=== PATIENT | male | born 1950 | race Caucasian/White ===

== ENCOUNTER 2022-02-19 17:16 | Inpatient (IN) | payer MEDICARE, BC ==
[~2022-02-19] VITALS: Ht 170.2 cm; Wt 78.9 kg
[~2022-02-19 17:16] MED LIST: MEROPENEM 500 MG in IV NS 0.9% 50 ML IV SCH
--- NOTE | 2022-02-19 17:28 | NUR ---
[id number] FOR ALTERED MENTAL STATUS AND TACHYCARDIA. PT ATTACHED TO MONITOR. PT HAVE A FEVER OF 101.6 UPON ARRIVAL, PT HAS DIARRHEA. PT HAS G TUBE IN PLACE. HAS PRESSURE INJURIES ON SACRUM AND BILATERAL HEELS. PT HAS G TUBE. DR CORONADO AT BEDSIDE. JENNIFER MAYER ORDERS.
[2022-02-19] MEDS ORDERED: IV NS 0.9% 1,000 ML BAG IV ONE ×2 (17:30→19:00)
--- NOTE | 2022-02-19 17:40 | NUR ---
IV ESTABLIHSED L HAND 20G. UNALBLE TO DRAW LABS. LAB AT BEDSIDE.
--- NOTE | 2022-02-19 17:50 | NUR ---
DR. CARR SPEAKING WITH DR. CORONADO.
[2022-02-19] MEDS ORDERED: ACETAMINOPHEN 650 MG/SUPP.RECT RC ONE ×2 (17:54→18:00)
[2022-02-19] MEDS ORDERED: DEXAMETHASONE SOD PHOSPHATE 10 MG/ML VIAL IV ONE (18:00)
[2022-02-19] MEDS ORDERED: PIPERACILLIN /TAZOBACTAM 3.375 G in IV D5W 50 ML IV ONE (18:00)
[2022-02-19] MEDS ORDERED: LEVOFLOXACIN 750 MG /D5W 150ML 150 ML IV ONE (18:00)
[2022-02-19] MEDS ORDERED: VANCOMYCIN 1 GM in IV D5W 250 ML IV ONE (18:00)
--- NOTE | 2022-02-19 18:00 | NUR ---
URINE AND COVID COLLECTED AND SENT
--- NOTE | 2022-02-19 18:00 | NUR ---
MOVE SHEET SUBMITTED.
--- NOTE | 2022-02-19 18:40 | NUR ---
BLOOD PRESSURE IS 62/40, MD AWARE. 1L OF NS ORDERED. NURSING PRISM INSPECTOR CALLED FOR PICC LINE.
[2022-02-19] MEDS ORDERED: DEXAMETHASONE SOD PHOSPHATE 10 MG/ML VIAL ONE (18:44)
[2022-02-19] MEDS ORDERED: LEVOFLOXACIN 250 MG /D5W 50 ML 50 ML IV ONE (18:44)
[2022-02-19] MEDS ORDERED: PIPERACILLIN /TAZOBACTAM 3.375 G VIAL IV ONE (19:58)
[2022-02-19 20:04] LABS: COLOR,URINE YELLOW (YELLOW)
[2022-02-19 20:05] LABS: BILIRUBIN,URINE SMALL (NEGATIVE); LEUKOCYTE ESTERASE ,URINE LARGE (NEGATIVE); NITRITE, URINE NEGATIVE (NEGATIVE); PROTEIN,URINE 3+ mg/dl (NEGATIVE); UGLUCOSE NEGATIVE (NEGATIVE); UROBILINOGEN,URINE 0.2 EU/dL (0.2)
[2022-02-19 20:07] LABS: BASOPHILS % (AUTO) 0.2 % (0.0-2.0); EOSINOPHILS % (AUTO) 0.1 % (0.0-6.0); HEMATOCRIT 40 % (39-51); HEMOGLOBIN 12.7 g/dL (13.5-17.5); LYMPHOCYTES # (AUTO) 1.8 K/uL (0.8-4.8); LYMPHOCYTES % (AUTO) 12.2 % (20.0-44.0); MEAN CORPUSCULAR HGB CONC 32 g/dl (31.0-36.0); MEAN CORPUSCULAR VOLUME 96 fL (80-96); MONOCYTES # (AUTO) 1.1 K/uL (0.1-1.30); MONOCYTES % (AUTO) 7.7 % (2.0-12.0); NEUTROPHILS # (AUTO) 11.7 K/uL (1.8-8.9); NEUTROPHILS % (AUTO) 79.8 % (43.0-81.0); PLATELET COUNT (AUTO) 231 K/uL (150-450); RED BLOOD CELL COUNT(AUTO) 4.15 MIL/uL (4.5-6.0); WHITE BLOOD COUNT (AUTO) 14.7 K/uL (4.3-11.0)
--- NOTE | 2022-02-19 20:16 | NUR ---
PT STEFANIE HUBER AT BEDSIDE SPEAKING WITH DR CORONADO. PER DNR, BUT OK WITH INTUBATION.
--- NOTE | 2022-02-19 20:20 | NUR ---
PER RN HOUSING OFFICER H[place]ILTON, NOBODY CAN COME TONIGHT TO DO PICC LINE INSERTION. CN MADE AWARE
[2022-02-19 20:28] LABS: BACTERIA,URINE 4+ /HPF (None Seen); RBC,URINE TOO NUMEROUS TO COUN /HPF (0-2); SQUAMOUS EPITHELIAL CELL,UR 0-2 /HPF (None Seen); WBC,URINE TOO NUMEROUS TO COUN /HPF (0-3)
[2022-02-19] MEDS ORDERED: ACETAMINOPHEN 325 MG TABLET PO PRN (21:00)
[2022-02-19] MEDS ORDERED: INSULIN REGULAR, HUMAN 100 UNIT/ML 3 ML VIAL SQ PRN (21:00)
[2022-02-19] MEDS ORDERED: MORPHINE SULFATE INJ 2 MG/ML DISP.SYRIN IV PRN (21:00)
[2022-02-19] MEDS ORDERED: NOREPINEPHRINE 8 MG in IV NS 0.9% 242 ML IV PRN (21:00)
[2022-02-19] MEDS ORDERED: DEXTROSE 50%-WATER 50 ML DISP.SYRIN IV PRN ×2 (21:00→22:00)
[2022-02-19] MEDS ORDERED: HYDROCODONE/APAP 5/325MG TABLET GT PRN (21:00)
[2022-02-19] MEDS ORDERED: ONDANSETRON HCL/PF 4 MG/2 ML VIAL IVP PRN (21:00)
[2022-02-19] MEDS ORDERED: Z GUARD REMEDY 4 OZ OINT TP PRN (21:00)
[2022-02-19] MEDS ORDERED: IPRATROPIUM NEB FS 0.5 MG/2.5 ML AMPUL.NEB NEB PRN (21:00)
[2022-02-19] MEDS ORDERED: ALBUTEROL FS 2.5 MG/3 ML VIAL.NEB NEB PRN (21:00)
[2022-02-19] MEDS ORDERED: MAGNESIUM HYDROXIDE 30 ML UDC PO PRN (21:00)
[2022-02-19] MEDS ORDERED: MAG HYDROX/AL HYDROX/SIMETH 30 ML UDC PO PRN (21:00)
--- NOTE | 2022-02-19 22:07 | NUR ---
BED 260
[2022-02-19 22:10] LABS: CALCIUM, SERUM 9.5 mg/dL (8.5-10.1); CARBON DIOXIDE 26 mmol/L (21-32); CHLORIDE 99 mmol/L (98-107); CREATININE 4.5 mg/dL (0.6-1.3); GLUCOSE 123 mg/dL (74-106); POTASSIUM 3.6 mmol/L (3.5-5.1); SODIUM SERUM 139 mmol/L (136-145); UREA NITROGEN, BLOOD 55 mg/dL (7-18)
[2022-02-19 22:16] LABS: ALANINE AMINOTRANSFERASE 410 U/L (12-78); ALBUMIN 2.6 g/dL (3.4-5.0); ALKALINE PHOSPHATASE 59 U/L (46-116); ASPARTATE AMINOTRANSFERASE 282 U/L (15-37); BILIRUBIN,DIRECT 0.3 mg/dL (0.0-0.2); BILIRUBIN,TOTAL 0.8 mg/dL (0.2-1.0); TOTAL PROTEIN, SERUM 5.8 g/dL (6.4-8.2)
[2022-02-19] MEDS ORDERED: NOREPINEPHRINE 4 MG/4 ML AMPUL IV ONE (22:40)
--- NOTE | 2022-02-19 22:50 | NUR ---
LEVOPHED DRIP STARTED AT 0.1 MCG/KG.MIN
--- NOTE | 2022-02-19 22:58 | NUR ---
REPORT GIVEN TO BUILDING CONSTRUCTION ESTIMATOR
[2022-02-19] MEDS ORDERED: MEROPENEM 500 MG in IV NS 0.9% 50 ML IV ONE (23:00)
--- NOTE | 2022-02-19 23:16 | NUR ---
PATIENT TRANSFERRED UNDER ACLS
[2022-02-19] MEDS ORDERED: MEROPENEM 500 MG VIAL IV ONE (23:42)
[2022-02-19] MEDS: methylPREDNISolone SOD SUCC 40 MG/ML VIAL IV SCH (23:43)
[2022-02-19] MEDS ORDERED: LINEZOLID RTU BAG 300 ML IV ONE (23:53)
[2022-02-20] VITALS (25 sets, daily range): BP systolic 87–133; BP diastolic 54–103
[2022-02-20] MEDS ORDERED: PIPERACILLIN /TAZOBACTAM 2.25 G in IV D5W 50 ML IV SCH ×2
[2022-02-20] MEDS ORDERED: BLOOD SUGAR DIAGNOSTIC 1 EACH STRIP IN SCH
[2022-02-20] MEDS: INSULIN REGULAR, HUMAN 100 UNIT/ML 3 ML VIAL SQ PRN ×3 (00:07→23:51)
[2022-02-20] MEDS: LINEZOLID RTU BAG 600 MG in PREMIX 1 EA IV SCH ×3 (00:08→21:02)
--- NOTE | 2022-02-20 04:05 | NUR ---
ELECTRONICS LEAD PT WAS ADMITTED FROM ER WITH DIAGNOSIS SEPSIS WITH SHOCK, UTI, ESRD, ENCEPHALOPATHY. PT IS NONVERBAL, WITH HEMIPLEGIA & HEMIPARESIS, RIGHT ARM IS CONTRACTED. O2-SIMPLE MASK 8 L. VSS. SCOPE-ST. NS BOLUS TOTALLY 2 L GIVEN IN ER. LEVOPHED DRIP WHICH WAS STARTED IN ER WAS D/C PRETTY SOON PT ARRIVED IN ICU. PT IS HARD STICK. HE HAS ONLY 2 IV ACCESS ON FEET. NEED PICC LINE INSERTION. CONSENT WAS SIGNED BY FAMILY. T ALSO HAS RIGHT CHEST PORT-A-CATH FOR HD. F/C DRAINS SMALL AMT. OF CLOUDY WITH SEDIMENT URINE. PT IS INCONTINENT IN BM. BATH GIVEN LINEN CHANGED, REPOSITIONED Q 2 HOURS. WILL CONTINUE CLOSE MONITORING
[2022-02-20] MEDS: methylPREDNISolone SOD SUCC 40 MG/ML VIAL IV SCH ×3 (04:28→20:24)
[2022-02-20 05:00] LABS: BASOPHILS % (AUTO) 0.3 % (0.0-2.0); EOSINOPHILS % (AUTO) 0.1 % (0.0-6.0); HEMATOCRIT 38 % (39-51); HEMOGLOBIN 12.6 g/dL (13.5-17.5); LYMPHOCYTES # (AUTO) 0.5 K/uL (0.8-4.8); MEAN CORPUSCULAR HGB CONC 33 g/dl (31.0-36.0); MEAN CORPUSCULAR VOLUME 94 fL (80-96); MONOCYTES # (AUTO) 0.5 K/uL (0.1-1.30); MONOCYTES % (AUTO) 3.9 % (2.0-12.0); NEUTROPHILS # (AUTO) 11.7 K/uL (1.8-8.9); NEUTROPHILS % (AUTO) 91.7 % (43.0-81.0); PLATELET COUNT (AUTO) 178 K/uL (150-450); RED BLOOD CELL COUNT(AUTO) 4.08 MIL/uL (4.5-6.0); WHITE BLOOD COUNT (AUTO) 12.7 K/uL (4.3-11.0)
[2022-02-20] MEDS: BLOOD SUGAR DIAGNOSTIC 1 EACH STRIP IN SCH ×5 (05:06→23:51)
[2022-02-20 05:18] LABS: CALCIUM, SERUM 9.9 mg/dL (8.5-10.1); CARBON DIOXIDE 29 mmol/L (21-32); CHLORIDE 98 mmol/L (98-107); CREATININE 4.7 mg/dL (0.6-1.3); GLUCOSE 132 mg/dL (74-106); MAGNESIUM 2.6 mg/dL (1.8-2.4); PHOSPHORUS 5.7 mg/dL (2.5-4.9); POTASSIUM 3.8 mmol/L (3.5-5.1); SODIUM SERUM 138 mmol/L (136-145); UREA NITROGEN, BLOOD 60 mg/dL (7-18)
[2022-02-20 05:31] LABS: CHOLESTEROL 165 mg/dL (<200); LDL 90 mg/dL (0-99); THYROID STIMULATING HORMONE 1.569 uIU/mL (0.358-3.74); TRIGLYCERIDES 81 mg/dL (30-150)
[2022-02-20] MEDS: ASCORBIC ACID 500 MG TABLET GT SCH (08:21)
[2022-02-20] MEDS: IV NS 0.9% 1,000 ML IV PRN ×3 (08:21→16:45)
[2022-02-20] MEDS: PANTOPRAZOLE 40 MG VIAL IV SCH (08:21)
[2022-02-20] MEDS: ZINC SULFATE 220 MG CAPSULE GT SCH (08:22)
[2022-02-20] MEDS: MEROPENEM 500 MG in IV NS 0.9% 50 ML IV SCH ×2 (08:23→20:24)
[2022-02-20] MEDS: HEPARIN SODIUM, PORCINE 5000 UNITS/1 ML VIAL SQ SCH ×2 (08:25→20:22)
[2022-02-20] MEDS: HYDROCORTISONE SOD SUCCINATE 100 MG/2 ML VIAL IV SCH ×3 (08:58→20:24)
[2022-02-20] MEDS ORDERED: ZINC220T3 GT (09:03)
[2022-02-20] MEDS ORDERED: POLY17PO4 GT (09:03)
[2022-02-20] MEDS ORDERED: CRAN400C GT (09:03)
[2022-02-20] MEDS ORDERED: NUT.237L67 GT (09:03)
[2022-02-20] MEDS ORDERED: CRAN3875 GT (09:03)
[2022-02-20] MEDS ORDERED: LANS30CA56 GT (09:03)
[2022-02-20] MEDS ORDERED: ASCO500C17 GT (09:03)
[2022-02-20] MEDS ORDERED: ALBU2.5V38 IH (09:03)
[2022-02-20] MEDS ORDERED: HYDROCORTISONE GT (09:03)
[2022-02-20] MEDS ORDERED: ACET325T53 GT (09:03)
[2022-02-20] MEDS ORDERED: DOCU-141 GT (09:03)
[2022-02-20 09:33] LABS: HDL CHOLESTEROL 46 mg/dL (40-60)
[2022-02-20] MEDS ORDERED: ALBUMIN 25% 25 GM in PREMIX 1 EA IV PRN (11:00)
--- NOTE | 2022-02-20 11:19 | NUR ---
Pt BS 160. holding insulin due to no nutrition/gtube feeding at the moment.
[2022-02-20] MEDS: NEPRO 1,000 ML BOTTLE GT SCH (13:31)
--- NOTE | 2022-02-20 18:57 | NUR ---
ICU/RN CLOSING NOTE PT IS RESTING IN BED, A/O X 1, NON-VERBAL, PT IS ON RA SATING AT 95%. IV ACCESS ON R UA MIDLINE, LEFT AND RIGHT FOOT, RUNNING NS AT 125ML/HR. ALL TREATMENTS AND INTERVENTIONS TOLERATED. ALL SAFETY MEASURES IN PLACE, FALL AND ASPIRATION PRECAUTIONS IN PLACE. WILL ENDORSE TO FINANCIAL SERVICES MANAGER RN FOR DAVID.
[2022-02-21] VITALS (13 sets, daily range): BP systolic 89–115; BP diastolic 59–86
[2022-02-21] MEDS: IV NS 0.9% 1,000 ML IV PRN ×3 (02:44→18:54)
--- NOTE | 2022-02-21 04:20 | NUR ---
INSULATION BOARD BACK TENDER PT IS CONFUSED, DISORIENTED, NONVERBAL, DOES NOT FOLLOW ANY COMMANDS. ROOM AIR. TOLERATES WELL. VSS, AFEBRILE, SCOPE-SR-ST. NO PRESSOR AN MORE.GT FEEDING TOLERATES WELL, NO RESIDUALS. F/C DRAINS SMALL AMT. OF CLOUDY WITH SEDIMENT URINE. HEMODIALYSIS DONE YESTERDAY- 1 L. FLUID WAS REMOVED. MEDICATED ORDERED. PT IS STABLE ENOUGH TO BE DOWNGRADED.
[2022-02-21] MEDS: methylPREDNISolone SOD SUCC 40 MG/ML VIAL IV SCH (04:26)
[2022-02-21] MEDS: HYDROCORTISONE SOD SUCCINATE 100 MG/2 ML VIAL IV SCH ×3 (04:26→21:24)
[2022-02-21] MEDS: BLOOD SUGAR DIAGNOSTIC 1 EACH STRIP IN SCH ×4 (05:14→23:50)
[2022-02-21 05:20] LABS: BASOPHILS % (AUTO) 0.1 % (0.0-2.0); HEMATOCRIT 26 % (39-51); HEMOGLOBIN 8.7 g/dL (13.5-17.5); LYMPHOCYTES # (AUTO) 0.4 K/uL (0.8-4.8); LYMPHOCYTES % (AUTO) 3.2 % (20.0-44.0); MEAN CORPUSCULAR HGB CONC 34 g/dl (31.0-36.0); MEAN CORPUSCULAR VOLUME 93 fL (80-96); MONOCYTES # (AUTO) 0.4 K/uL (0.1-1.30); MONOCYTES % (AUTO) 3.9 % (2.0-12.0); NEUTROPHILS # (AUTO) 10.7 K/uL (1.8-8.9); NEUTROPHILS % (AUTO) 92.8 % (43.0-81.0); PLATELET COUNT (AUTO) 156 K/uL (150-450); RED BLOOD CELL COUNT(AUTO) 2.81 MIL/uL (4.5-6.0); WHITE BLOOD COUNT (AUTO) 11.5 K/uL (4.3-11.0)
[2022-02-21 05:42] LABS: ALANINE AMINOTRANSFERASE 301 U/L (12-78); ALBUMIN 2.5 g/dL (3.4-5.0); ALKALINE PHOSPHATASE 46 U/L (46-116); ASPARTATE AMINOTRANSFERASE 173 U/L (15-37); BILIRUBIN,TOTAL 0.4 mg/dL (0.2-1.0); CALCIUM, SERUM 8.9 mg/dL (8.5-10.1); CARBON DIOXIDE 29 mmol/L (21-32); CHLORIDE 103 mmol/L (98-107); CREATININE 3.6 mg/dL (0.6-1.3); GLUCOSE 125 mg/dL (74-106); MAGNESIUM 2.2 mg/dL (1.8-2.4); POTASSIUM 3.8 mmol/L (3.5-5.1); SODIUM SERUM 139 mmol/L (136-145); TOTAL PROTEIN, SERUM 5.3 g/dL (6.4-8.2); UREA NITROGEN, BLOOD 47 mg/dL (7-18)
[2022-02-21 06:16] LABS: PHOSPHORUS 2.1 mg/dL (2.5-4.9)
[2022-02-21] MEDS: ASCORBIC ACID 500 MG TABLET GT SCH (08:33)
[2022-02-21] MEDS: ZINC SULFATE 220 MG CAPSULE GT SCH (08:33)
[2022-02-21] MEDS: PANTOPRAZOLE 40 MG VIAL IV SCH (08:33)
[2022-02-21] MEDS: MEROPENEM 500 MG in IV NS 0.9% 50 ML IV SCH ×2 (08:33→21:24)
[2022-02-21] MEDS: HEPARIN SODIUM, PORCINE 5000 UNITS/1 ML VIAL SQ SCH ×2 (08:36→21:30)
--- NOTE | 2022-02-21 10:00 | NUR ---
RN NOTE Received report from AYDEN Scott from ICU. Received patient via bed at 0930. Patient is A/O x 1. On room air, breathing evenly and unlabored. No SOB or s/s of distress noted. IV access on DIALLO midline infusing NS at 125 ml/hr. Right foot #18, and Left foot #20 intact and patent. Patient oriented to room and how to use the call light. Skin assessment done, sacral redness noted as well as discolorations on toes on both feet. Discoloration on both hands noted. Photos taken and placed in chart. Wound care consult requested. VS taken as follows: BP 89/59, RR 18, HR 98, Temp 97.8, SPO2 97%. BP rechecked after 30 mins, went up to 95/60. External monitor attached, shows sinus tachycardia, HR 107. G-tube in place running Nepro at 60 ml/hr. Safety precautions in place: bed in low, locked position; siderails up x 2; call light within reach. Will continue to monitor.
[2022-02-21] MEDS: LINEZOLID RTU BAG 600 MG in PREMIX 1 EA IV SCH ×2 (10:13→21:53)
[2022-02-21] MEDS ORDERED: NEUTRA PHOS 1 POWD.PACKET GT ONE (11:00)
--- NOTE | 2022-02-21 12:00 | NUR ---
RN NOTE GT feeding residuals checked, 0 ml. Rate increased to 65 ml/hr, goal is 70 ml/hr. Will continue to monitor.
[2022-02-21] MEDS: HYDROCORTISONE 20 MG TABLET GT SCH (12:16)
[2022-02-21] MEDS: INSULIN REGULAR, HUMAN 100 UNIT/ML 3 ML VIAL SQ PRN ×2 (12:30→23:54)
--- NOTE | 2022-02-21 18:00 | NUR ---
RN NOTE G-tube residual checked, 0 ml. G-tube feeding rate increased to 70ml/ hour. Will continue to monitor.
--- NOTE | 2022-02-21 18:46 | NUR ---
RN NOTE Patient is resting in bed, asleep. A/O x 1. On room air, breathing evenly and unlabored. No SOB or s/s of distress noted. IV access on DIALLO midline infusing NS at 125 ml/hr. Right foot #18, and Left foot #20 intact and patent. On external monitoring shows sinus tachycardia, HR 106. G-tube in place running Nepro at 70 ml/hr. On FC draining dark yellow urine, approx 250cc. Latest capillary glucose 127mg/dl. No insulin coverage needed. Due meds given. Patient kept clean and dry. Turned and repositioned as tolerated. Safety precautions in place: bed in low, locked position; siderails up x 2; call light within reach. Will endorse to seismograph observer nurse for DAVID.
--- NOTE | 2022-02-21 19:45 | NUR ---
RAT CULTURIST OPENING NOTE PATIENT AWAKE IN BED WITH AT BEDSIDE, PT ALERT/ORIENTED TO NAME ONLY. PT STABLE ON RA, NO S/S OF DISTRESS OR SOB NOTED, BREATHING EVEN AND UNLABORED. PATIENT ON EXTERNAL SERVICE ADVISOR READING SINUS RHYTHM, HR: 98. BALDWIN CATHETER IN PLACE AND DRAINING DARK YELLOW URINE BY GRAVITY. PATIENT ON GTUBE FEEDING RUNNING NEPRO @ 70 ML/HR. IV ACCESS ON DIALLO MIDLINE INTACT AND INFUSING NS @ 125 ML/HR. SAFETY MEASURES IN PLACE: CALL LIGHT WITHIN REACH, SIDE RAILS UP X 3, BED LOCKED IN LOWEST POSITION, HOB ELEVATED, BED ALARM ON. WILL CONTINUE TO MONITOR PATIENT
--- NOTE | 2022-02-21 21:30 | NUR ---
SUPERVISOR MECHANIC BOILERMAKING NOTE COLACE HELD, PT NPO AND ON GTUBE FEEDING, CAN'T GIVE MED VIA GTUBE. PATIENT ALSO HAVING DIARRHEA
[2022-02-21] MEDS ORDERED: DOCUSATE SODIUM 100 MG CAPSULE PO SCH (22:00)
[2022-02-21] MEDS: NEPRO 1,000 ML BOTTLE GT SCH (23:33)
[2022-02-22 04:00] VITALS: BP 109/63
[2022-02-22] MEDS: IV NS 0.9% 1,000 ML IV PRN (04:45)
[2022-02-22] MEDS: BLOOD SUGAR DIAGNOSTIC 1 EACH STRIP IN SCH ×2 (06:36→12:35)
[2022-02-22] MEDS: INSULIN REGULAR, HUMAN 100 UNIT/ML 3 ML VIAL SQ PRN (06:36)
--- NOTE | 2022-02-22 07:04 | NUR ---
EMERGENCY ROOM CLERK CLOSING NOTE PATIENT AWAKE IN BED, PT ALERT/ORIENTED TO NAME ONLY. PT STABLE ON RA, NO S/S OF DISTRESS OR SOB NOTED, BREATHING EVEN AND UNLABORED. PATIENT ON EXTERNAL GARDE MANGER READING SINUS RHYTHM, HR: 91 . BALDWIN CATHETER IN PLACE AND DRAINING DARK YELLOW URINE BY GRAVITY, OUTPUT 350 ML . PATIENT ON GTUBE FEEDING RUNNING NEPRO @ 70 ML/HR X 20 HOURS, STOPPED FROM 2-6 AM. IV ACCESS ON DIALLO MIDLINE INTACT AND INFUSING NS @ 125 ML/HR, RIGHT FOOT #18G AND LEFT FOOT #20G IV ACCESS INTACT AND SALINE LOCKED. RCW PORTACATH NOTED, DRESSING CLEAN, DRY AND INTACT. MEDICATIONS GIVEN ORDERED, PT NEEDS MET THROUGHOUT SHIFT. SAFETY MEASURES IN PLACE: CALL LIGHT WITHIN REACH, SIDE RAILS UP X 3, BED LOCKED IN LOWEST POSITION, HOB ELEVATED, BED ALARM ON. WILL ENDORSE TO DAYSHIFT NURSE FOR CONTINUITY OF CARE
--- NOTE | 2022-02-22 07:29 | NUR ---
RN OPENING NOTES PATIENT AWAKE IN BED RESTING, A/O X 1. NO S/S OF PAIN NOTED AT THIS TIME. ON ROOM AIR, NO DISTRESS OR SHORTNESS OF BREATH NOTED. IV ACCESS DIALLO MIDLINE, R FOOT #18G, L FOOT #20G INTACT, PATENT, FLUSHING WELL. PATIENT WITH EXTERNAL SEQUINS SPOOLER WITH CURRENT READING OF SR AND HR OF 90, NO CARDIAC DISTRESS NOTED AT THIS TIME. PATIENT HAVE A BALDWIN CATHETER IN PLACE AND DRAINING WELL. FALL AND SAFETY MEASURES IN PLACE, BED ALARM ON, BED IN LOW LOCK POSITION, CALL LIGHT AND TABLE WITHIN EASY REACH, SIDE RAILS UP X2. WILL CONTINUE TO MONITOR.
[2022-02-22 07:37] LABS: BASOPHILS % (AUTO) 0.2 % (0.0-2.0); HEMATOCRIT 25 % (39-51); HEMOGLOBIN 8.4 g/dL (13.5-17.5); LYMPHOCYTES # (AUTO) 0.4 K/uL (0.8-4.8); LYMPHOCYTES % (AUTO) 4.3 % (20.0-44.0); MEAN CORPUSCULAR HGB CONC 33 g/dl (31.0-36.0); MEAN CORPUSCULAR VOLUME 94 fL (80-96); MONOCYTES # (AUTO) 0.4 K/uL (0.1-1.30); MONOCYTES % (AUTO) 4.3 % (2.0-12.0); NEUTROPHILS # (AUTO) 8.9 K/uL (1.8-8.9); NEUTROPHILS % (AUTO) 91.2 % (43.0-81.0); PLATELET COUNT (AUTO) 147 K/uL (150-450); RED BLOOD CELL COUNT(AUTO) 2.67 MIL/uL (4.5-6.0); WHITE BLOOD COUNT (AUTO) 9.7 K/uL (4.3-11.0)
[2022-02-22 07:59] LABS: CALCIUM, SERUM 8.5 mg/dL (8.5-10.1); CARBON DIOXIDE 25 mmol/L (21-32); CHLORIDE 108 mmol/L (98-107); CREATININE 3.6 mg/dL (0.6-1.3); GLUCOSE 119 mg/dL (74-106); MAGNESIUM 2.2 mg/dL (1.8-2.4); PHOSPHORUS 3.5 mg/dL (2.5-4.9); POTASSIUM 3.4 mmol/L (3.5-5.1); SODIUM SERUM 144 mmol/L (136-145); UREA NITROGEN, BLOOD 64 mg/dL (7-18)
[2022-02-22 08:00] VITALS: BP 97/59
[2022-02-22] MEDS ORDERED: PANTOPRAZOLE 40 MG/PACK PACK GT SCH (09:00)
[2022-02-22] MEDS: MEROPENEM 500 MG in IV NS 0.9% 50 ML IV SCH (09:26)
[2022-02-22] MEDS: HYDROCORTISONE SOD SUCCINATE 100 MG/2 ML VIAL IV SCH (09:27)
[2022-02-22] MEDS: HYDROCORTISONE 20 MG TABLET GT SCH (09:27)
[2022-02-22] MEDS: ASCORBIC ACID 500 MG TABLET GT SCH (09:27)
[2022-02-22] MEDS: ZINC SULFATE 220 MG CAPSULE GT SCH (09:27)
[2022-02-22] MEDS: HEPARIN SODIUM, PORCINE 5000 UNITS/1 ML VIAL SQ SCH (09:29)
[2022-02-22] MEDS ORDERED: MERO500V23 IV (10:16)
--- NOTE | 2022-02-22 11:18 | NUR ---
WOUND CARE CONSULT: PT SEEN FOR REDNESS TO SACRAL/BUTTOCKS AREA WHICH IS BLANCHABLE, PRESENT ON ADMISSION. THERE ARE DISCOLORATIONS /STAIN TO TOENAILS, PRESENT ON ADMISSION. PT IS INCONTINENT OF LOOSE STOOL. BALDWIN CATH NOTED. DISCUSSED SKIN PROTECTION WITH NURSING STAFF. MD IN AGREEMENT WITH PLAN OF CARE.
--- NOTE | 2022-02-22 13:25 | NUR ---
FOOD CONSULTANT NOTE PATIENT DISCHARGE IN STABLE CONDITION. A/O X1. V/S TAKEN, STABLE AND RECORDED. REMOVED X2 IV R FOOT AND LEFT FOOT, PATIENT DISCHARGE WITH DIALLO MIDLINE TO CONTINUE ANTIBIOTICS. PT LEFT WITH BALDWIN CATHETER AND INSTRUCTED TO MONITOR URINE OUTPUT. NAME ARM BAND REMOVED. EXTERNAL CABLE SWAGER REMOVED AND RETURNED TO TELE DESK. SKIN ASSESSMENT DONE AND PICTURES TAKEN. ALL BELONGINGS CHECKED AND SIGNED. HEALTH TEACHING AND DISCHARGE INSTRUCTIONS GIVEN TO PATIENT, PATIENTS'S FAMILY AND PARAMEDICS, VERBALIZED UNDERSTANDING. CALLED [facility] X3 TIMES TO GIVE REPORT, FLIGHT SERVICE SPECIALIST SAID NURSE WAS BUSY AND THAT THEY WILL CALL BACK FOR REPORT. PATIENT LEFT UNIT VIA GURNEY WITH NO SIGNS OF DISTRESS, ACCOMPANIED BY PARAMEDICS. CHARGE NURSE AWARE OF DISCHARGE.
[2022-02-22] MEDS ORDERED: LINEZOLID 600 MG TABLET GT SCH (21:00)
== END 2022-02-22 13:30 | DRG 871 ==
LOC: ER 17:18 → ICU 22:20 → TELE 02-21 09:23
PROVIDERS: ADMIT Nurse Practitioner Acute Care; ATTEND Internal Medicine
PROC: 5A1D70Z Performance of Urinary Filtration, Intermittent, Less than 6 Hours Per Day (ICD-10-PCS; principal; 2022-02-20)
PROC: 05HB33Z Insertion of Infusion Device into Right Basilic Vein, Percutaneous Approach (ICD-10-PCS; 2022-02-20)
DX: A41.9 Sepsis, unspecified organism (principal); G93.41 Metabolic encephalopathy; N18.6 End stage renal disease; R65.21 Severe sepsis with septic shock; J15.6 Pneumonia due to other Gram-negative bacteria; J96.20 Acute and chronic respiratory failure, unspecified whether with hypoxia or hypercapnia; D68.59 Other primary thrombophilia; N39.0 Urinary tract infection, site not specified; I69.351 Hemiplegia and hemiparesis following cerebral infarction affecting right dominant side; I12.0 Hypertensive chronic kidney disease with stage 5 chronic kidney disease or end stage renal disease; E87.20 Acidosis, unspecified; I82.503 Chronic embolism and thrombosis of unspecified deep veins of lower extremity, bilateral; E27.1 Primary adrenocortical insufficiency; J81.1 Chronic pulmonary edema; Z66 Do not resuscitate; Z20.822 Contact with and (suspected) exposure to COVID-19; Z86.711 Personal history of pulmonary embolism; K21.9 Gastro-esophageal reflux disease without esophagitis; Z87.19 Personal history of other diseases of the digestive system; Z88.1 Allergy status to other antibiotic agents; Z79.51 Long term (current) use of inhaled steroids; Z79.899 Other long term (current) drug therapy; D63.1 Anemia in chronic kidney disease; E11.22 Type 2 diabetes mellitus with diabetic chronic kidney disease; Z95.828 Presence of other vascular implants and grafts; Z99.2 Dependence on renal dialysis; Z79.52 Long term (current) use of systemic steroids; R13.10 Dysphagia, unspecified; Z93.1 Gastrostomy status; N40.0 Benign prostatic hyperplasia without lower urinary tract symptoms; Z74.09 Other reduced mobility; I25.10 Atherosclerotic heart disease of native coronary artery without angina pectoris; J44.9 Chronic obstructive pulmonary disease, unspecified; K29.70 Gastritis, unspecified, without bleeding; K44.9 Diaphragmatic hernia without obstruction or gangrene; K31.7 Polyp of stomach and duodenum; Z74.01 Bed confinement status; Z82.49 Family history of ischemic heart disease and other diseases of the circulatory system; Z83.3 Family history of diabetes mellitus; B96.89 Other specified bacterial agents as the cause of diseases classified elsewhere; Y95 Nosocomial condition; D69.6 Thrombocytopenia, unspecified
CPT/HCPCS: 36415; 71045-TC; 80048-TC; 80053-TC; 80061-TC; 80076-TC; 81001; 82533; 82962-TC; 83605-TC; 83735-TC; 84100-TC; 84439-TC; 84443-TC; 84484-TC; 85025-TC; 85730-TC; 86706; 87040-TC; 87081-TC; 87086-TC; 87340; 90935-TC; 93307-TC; A4216; A4217; C9113; C9803; G0378; J1100; J1644; J1720; J1815; J1956; J2020; J2185; J2543; J2920; J7030; J7050; J7060; P9047